=== PATIENT | male | born 1985 | race Two or more races ===

== ENCOUNTER 2024-06-19 01:48 | Emergency (ER) | payer MEDICAID, OTHER ==
[~2024-06-19] VITALS: Ht 175.3 cm; Wt 85.9 kg
--- NOTE | 2024-06-19 02:57 | ED.PDOC ---
History of Present Illness HPI Comments 39 y/o M presents with daughter for c/o mild abdominal pain, nausea, vomiting, diarrhea, and poor appetite, today. Patient is a Irish speaker and endorses on developing symptoms at around 1700, yesterday. He comments on his daughter being sick, currently, and his other child at home, recently, recovering from similar symptoms that they had a few days ago. Patient reports on not eating anything following onset of symptoms, due to pain being exacerbated whenever he eats or drinks anything. He endorses on no recent spoiled food intake, travel, medical history, or additional relevant information. Patient denies having any hematemesis, hematochezia, constipation, fever, chills, or other associated symptoms or modifiers at this time. Chief Complaint: Abdominal Pain Time Seen by MD: 02:30 Reviewed Notes: Nurses Notes, Medications, Allergies Allergies: Coded Allergies: NO KNOWN ALLERGIES (Unverified , 06/19/24) Information Source: Patient Mode of Arrival: Ambulatory Severity: Moderate Timing: Hours Duration: Since onset Prehospital treatment: None Past Medical History PAST MEDICAL HISTORY: Denies Surgical History: Denies all surgeries Family History Family History: Unknown Social History Smoker: Cigarettes Alcohol: Denies ETOH Use Drugs: Denies Drug Use Lives In: Home Gastrointestinal: reports: abdominal pain, diarrhea, nausea, poor appetite, vomiting All Other Systems: Reviewed and Negative (negative unless otherwise stated above or in HPI) Physical Exam General Appearance: No Apparent Distress, Normal, Other (tired appearing) HEENT: Normal ENT Inspection, Pharynx Normal, TMs Normal Neck: Full Range of Motion, Non-Tender, Normal, Normal Inspection Respiratory: Chest Non-Tender, Lungs Clear, No Accessory Muscle Use, No Respiratory Distress, Normal Breath Sounds Cardiovascular: No Edema, No JVD, No Murmur, No Gallop, Normal Peripheral Pulses, Regular Rate/Rhythm Breast Exam: Deferred Gastrointestinal: No Organomegaly, Non Tender, No Pulsatile Mass, Normal Bowel Sounds, Soft Genitalia: Deferred Pelvic: Deferred Rectal: Deferred Extremities: No calf tenderness, Normal capillary refill, Normal inspection, Normal range of motion, Non-tender, No pedal edema Musculoskeletal : Apperance: Normal Neurologic: Alert, talent acquisition consultant II-XII nml as Tested, No Motor Deficits, Normal Affect, Normal Mood, No Sensory Deficits Cerebellar Function: Normal Reflexes: Normal Skin: Dry, Normal Color, Warm Lymphatic: No Adenopathy Was a procedure done? Was a procedure done?: No Differential Dx Considerations may include: viral syndrome, gastritis, gastroenteritis, spoiled food, acute abdomen X-Ray, Labs, Meds, VS Vital Signs Date Time Temp Pulse Resp B/P (MAP) Pulse Ox O2 Delivery O2 Flow Rate FiO2 06/19/24 02:13 98.2 103 18 114/85 (95) 97 Lab Test 06/19/24 02:19 Range/Units Influenza Type A Antigen Negative Negative Influenza Type B Antigen Negative Negative SARS-CoV-2 Antigen (Rapid) Negative NEGATIVE Current Medications Medications (Trade) Dose Ordered Sig/Nelda Route Start Time Stop Time Status Last Admin Acetaminophen (Tylenol Tablet) 650 mg ONCE ONCE PO 06/19/24 02:45 06/19/24 02:46 DC 06/19/24 03:53 Ondansetron HCl (Zofran Po) 4 mg ONCE ONCE PO 06/19/24 02:45 06/19/24 02:46 DC 06/19/24 03:53 Famotidine (Pepcid Tablet) 20 mg ONCE ONCE PO 06/19/24 02:45 06/19/24 02:46 DC 06/19/24 03:53 Time of 1ST Reevaluation: 03:00 Reevaluation 1ST: Unchanged Patient Education/Counseling: Diagnosis, Treatment Family Education/Counseling: Other (patient is present with minor daughter ) Additional Information The following tests were ordered, and results were reviewed by me: COVID19 SADAF antigen and Rapid Influenza A&B tests I discussed treatment and results with medical personnel Departure 1 Departure Time of Disposition: 05:05 (Patient likely with viral syndrome. He is tolerating p.o. and feeling well.) Impression: Primary Impression: Acute viral syndrome Additional Impression: Nausea & vomiting Qualified Codes: R11.12 - Projectile vomiting Disposition: 01 HOME / SELF CARE / HOMELESS Condition: Stable Additional Instructions: You likely have a viral illness. It is important to stay well rested and well hydrated. You can take Tylenol and Motrin as needed for pain and fever. For a sore throat you can drink warm tea with honey. You can take [id number] pseudoephedrine for nasal congestion. He should follow up with your regular doctor within 1 week to ensure you are doing better. If your symptoms worsen or you have any other concerns please return to the emergency room. Discharged With: Self Critical Care Note Critical Care Time?: No Stability Stability form required: No Heart Score Heart Score: Heart Score Response (Comments) Value History N/A 0 EKG N/A 0 Age N/A 0 Risk Factors N/A 0 Troponin N/A 0 Total 0 I personally scribed for LI GRAY MD ([email or web address]) on 06/19/24 at 02:57. Electronically submitted by Yury Martinez ([email or web address]). LI GRAY MD Jun 19, 2024 02:57
[2024-06-19 03:32] LABS: COVID19 ANTIGEN SOFIA FIA NEGATIVE (NEGATIVE); Rapid Influenza A Negative (Negative); Rapid Influenza B Negative (Negative)
[2024-06-19] MEDS: ACETAMINOPHEN 325 MG TAB PO ONE (03:53)
[2024-06-19] MEDS: ONDANSETRON ODT 4 MG TAB PO ONE (03:53)
[2024-06-19] MEDS: FAMOTIDINE 20 MG TAB PO ONE (03:53)
[2024-06-19 05:15] VITALS: BP 116/80; TEMP 98.2
[2024-06-19 05:16] VITALS: PULSE 95; RESP 20; O2SAT 98
== END 2024-06-19 05:29 | disposition home or self-care (01) ==
LOC: ER 01:48
DX: B34.9 Viral infection, unspecified (principal); F17.210 Nicotine dependence, cigarettes, uncomplicated; Z20.822 Contact with and (suspected) exposure to COVID-19
CPT/HCPCS: 36415; 87426; 87804; 99284; Q0162